=== PATIENT | female | born 1970 | race Caucasian/White ===

== ENCOUNTER 2017-06-08 05:59 | Day surgery (SDC) | payer OTHER ==
[2017-06-08] MEDS ORDERED: BUPIVACAINE 0.5%/EPI (SDV) 30 ML INJ (06:39)
[2017-06-08] MEDS ORDERED: CEFTRIAXONE 1 GM/NS 50 ML IVPB (07:00)
[2017-06-08 07:16] LABS: ADD MAN DIFF? NO
[2017-06-08 07:19] LABS: BASOPHILS % 0.5 % (0.0-2.0); EOSINOPHILS # 0.2 10^3/ul (0.0-0.5); EOSINOPHILS % 3.4 % (0.0-7.0); HEMOGLOBIN 10.2 g/dl (12.0-16.0); LYMPHOCYTES # 1.7 10^3/ul (0.8-2.9); LYMPHOCYTES % 27.6 % (15.0-51.0); MEAN CORPUSCULAR HEMOGLOBIN 31.8 pg (29.0-33.0); MEAN CORPUSCULAR HGB CONC 31.9 g/dl (32.0-37.0); MEAN CORPUSCULAR VOLUME 99.7 fl (82.0-101.0); MEAN PLATELET VOLUME 9.3 fl (7.4-10.4); MONOCYTE # 0.5 10^3/ul (0.3-0.9); MONOCYTES % 7.5 % (0.0-11.0); NEUTROPHIL # 3.6 10^3/ul (1.6-7.5); NEUTROPHILS % 60.8 % (39.0-77.0); PLATELET COUNT 244 10^3/UL (140-415); RED BLOOD COUNT 3.21 10^6/ul (4.20-5.40); RED CELL DISTRIBUTION WIDTH 15.7 % (11.5-14.5)
[2017-06-08] MEDS ORDERED: CEFAZOLIN 1 GM INJ (07:23)
[2017-06-08] MEDS ORDERED: PROPOFOL 20 ML (07:23)
[2017-06-08] MEDS ORDERED: METOCLOPRAMIDE 10 MG INJ (07:24)
[2017-06-08] MEDS ORDERED: FENTAnyl 50 MCG/ML VIAL (07:24)
[2017-06-08] MEDS ORDERED: ONDANSETRON 4 MG INJ (07:24)
[2017-06-08] MEDS ORDERED: MIDAZOLAM 1 MG/ML 2 ML INJ (07:24)
[2017-06-08 07:33] LABS: ADD UMIC YES; UR ASCORBIC ACID NEGATIVE (NEGATIVE); UR BACTERIA MODERATE /HPF (NONE SEEN); UR BILIRUBIN (Dip) NEGATIVE (NEGATIVE); UR BLOOD (Dip) 3+ mg/dL (NEGATIVE); UR CLARITY CLOUDY (CLEAR); UR COLOR YELLOW (YELLOW); UR GLUCOSE (Dip) NEGATIVE (NEGATIVE); UR KETONES (Dip) NEGATIVE (NEGATIVE); UR LEUKOCYTE ESTERASE (Dip) 3+ Leu/ul (NEGATIVE); UR MUCUS FEW /HPF (NONE SEEN); UR NITRITE (Dip) NEGATIVE (NEGATIVE); UR RBC > 182 /HPF (0-5); UR SPECIFIC GRAVITY (Dip) 1.015 (1.003-1.030); UR SQUAMOUS EPITHELIAL CELL FEW /HPF (FEW); UR TOTAL PROTEIN (Dip) 2+ mg/dl (NEGATIVE); UR UROBILINOGEN (Dip) NEGATIVE (NEGATIVE); UR WBC > 182 /HPF (0-5)
[2017-06-08 07:41] LABS: INR 0.93; PROTIME 12.5 Sec (11.9-14.9)
[2017-06-08 07:42] LABS: PARTIAL THROMBOPLASTIN TIME 32.4 Sec (25.0-35.0)
[2017-06-08 07:44] LABS: ALANINE AMINOTRANSFERASE 39 IU/L (13-69); ALBUMIN 4.8 g/dl (3.3-4.9); ALBUMIN/GLOBULIN RATIO 1.14; ALKALINE PHOSPHATASE 83 IU/L (42-121); ANION GAP 18 (8-16); ASPARTATE AMINO TRANSFERASE 33 IU/L (15-46); BILIRUBIN,INDIRECT 0.1 mg/dl (0-1.1); BILIRUBIN,TOTAL 0.1 mg/dl (0.2-1.3); CARBON DIOXIDE 23 mmol/L (21-31); CHLORIDE 110 mmol/L (97-110); GLUCOSE 85 mg/dl (70-220)
[2017-06-08 07:45] LABS: BLOOD UREA NITROGEN 22 mg/dl (7-20); CALCIUM 9.6 mg/dl (8.4-10.2); CREATININE 0.89 mg/dl (0.44-1.00); POTASSIUM 3.9 mmol/L (3.5-5.1)
[2017-06-08 07:47] LABS: SODIUM 147 mmol/L (135-144)
[2017-06-08] MEDS ORDERED: DIPHENHYDRAMINE 50 MG INJ IV (08:00)
[2017-06-08] MEDS ORDERED: OXYCODONE/ACETAMINOPHEN (5/325) TAB PO (08:00)
[2017-06-08] MEDS ORDERED: ONDANSETRON 4 MG INJ IV (08:00)
[2017-06-08] MEDS ORDERED: MEPERIDINE 25 MG INJ IV (08:00)
[2017-06-08] MEDS ORDERED: HYDROmorphONE (0.2 MG/ML) 10ML SYG IV ×3 (08:00)
[2017-06-08] MEDS ORDERED: EPHEDrine SULFATE 50 MG/5 ML SYG (08:05)
[2017-06-08] MEDS ORDERED: ACETAMINOPHEN 1000MG/100ML IV 100 ML (08:11)
[2017-06-08] MEDS ORDERED: HYDROCODONE/APAP (5/325) TAB PO (09:30)
[2017-06-08] MEDS: OXYCODONE/ACETAMINOPHEN (5/325) TAB PO (10:36)
== END 2017-06-08 12:43 | disposition home or self-care (01) ==
LOC: SDS 05:59
DX: N20.2 Calculus of kidney with calculus of ureter (principal); E03.9 Hypothyroidism, unspecified
CPT/HCPCS: 52356; 71045; 74430; 80053; 81001; 84703; 85025; 85610; 85730; 87086; 88300; 93005